=== PATIENT | female | born 1945 | race Caucasian/White ===

== ENCOUNTER 2020-07-31 09:16 | Observation (INO) ==
[2020-07-31] MEDS ORDERED: CeFAZolin Syr 2,000MG/20 ML 2,000 MG/20 ML SYRINGE IVPB ONE (09:28)
[2020-07-31] MEDS ORDERED: Ringers Solution, Lactated 1,000 ML IVC SCH ×2 (09:30→13:13)
[2020-07-31] MEDS ORDERED: Famotidine 20 MG/2 ML VIAL IVP ONE (10:14)
[2020-07-31] MEDS ORDERED: *HR* FentaNYL (PF) 100 MCG/2 ML VIAL IVP PRN (10:33)
[2020-07-31] MEDS ORDERED: flumazeniL 0.5 MG/5 ML VIAL IVP PRN (10:33)
[2020-07-31] MEDS ORDERED: *HR* Metoprolol 5 MG/5 ML VIAL IVP PRN (10:33)
[2020-07-31] MEDS ORDERED: Naloxone 0.4 MG/ML INJ IVP PRN (10:33)
[2020-07-31] MEDS ORDERED: Albuterol 2.5 MG/3 ML NEBULIZER IH PRN (10:33)
[2020-07-31] MEDS ORDERED: Ondansetron 4 MG/2 ML VIAL IVP PRN ×2 (10:33→13:13)
[2020-07-31] MEDS ORDERED: *HR* Propofol 200 MG/20 ML VIAL IVP ONE (10:45)
[2020-07-31] MEDS ORDERED: *HR* FentaNYL (PF) 100 MCG/2 ML VIAL ONE (10:45)
[2020-07-31] MEDS ORDERED: *HR* Rocuronium Bromide 50 MG/5 ML VIAL ONE (10:46)
[2020-07-31] MEDS ORDERED: *HR* Succinylcholine 200 MG/10 ML VIAL IVP ONE (10:46)
[2020-07-31] MEDS ORDERED: Lidocaine HCL 4 ML Topical Solution (Laryng-O-Jet Kit Sterile Pak) TP ONE (10:46)
[2020-07-31] MEDS ORDERED: Lidocaine -MPF 2% 2 ML VIAL ONE ×2 (10:46→11:51)
[2020-07-31] MEDS ORDERED: Ondansetron 4 MG/2 ML VIAL ONE (10:46)
[2020-07-31] MEDS ORDERED: Dexamethasone 4 MG/ML VIAL ONE (10:46)
[2020-07-31] MEDS ORDERED: Isovue-300 50ML VIAL ONE (10:53)
[2020-07-31] MEDS ORDERED: *HR* HYDROMORPHONE 2 MG/ML VIAL ONE (11:49)
[2020-07-31] MEDS ORDERED: clonazePAM 1 MG TABLET PO PRN (13:13)
[2020-07-31] MEDS ORDERED: Ondansetron ODT 4 MG TAB.RAPDIS PO PRN (13:13)
[2020-07-31] MEDS: CeFAZolin 2 GM/120 ML BAG IVPB SCH (16:22)
[2020-07-31] MEDS ORDERED: *HR* LORazepam 2 MG/ML VIAL ONE (20:25)
[2020-07-31] MEDS: *HR* LORazepam 2 MG/ML VIAL IVP PRN (20:36)
[2020-07-31] MEDS ORDERED: NON-FORMULARY MEDICATION 1 EACH EACH (Calcium Carbonate/Vitamin D3 [Oyster Shell 500mg-Vit PO SCH (21:00)
[2020-07-31] MEDS: *HR* OxyCODONE Immed Rel 5 MG TABLET PO PRN (21:45)
[2020-07-31] MEDS: Latanoprost 2.5 ML BOTTLE BOTH EYES SCH (21:59)
[2020-07-31] MEDS: Famotidine 20 MG TABLET PO SCH (21:59)
[2020-08-01 01:04] LABS: BUN/Creatinine Ratio 19 (6-26); Blood Urea Nitrogen 12 mg/dL (8-23); Calcium 9.5 mg/dL (8.6-10.3); Carbon Dioxide 22 mEq/L (23-29); Chloride 103 mEq/L (98-107); Glucose 146 mg/dL (70-105); Osmolality,Calculated 286 (280-300); Potassium 4.5 mEq/L (3.5-5.1); Sodium 137 mEq/L (136-145); eGFR For African Americans > 60 (> 60); eGFR For Non-African Americans > 60 (> 60)
[2020-08-01] MEDS: CeFAZolin 2 GM/120 ML BAG IVPB SCH (01:07)
[2020-08-01] MEDS: *HR* OxyCODONE Immed Rel 5 MG TABLET PO PRN (05:50)
[2020-08-01] MEDS: Loratadine 10 MG TABLET PO SCH (08:15)
[2020-08-01] MEDS: Cholecalciferol (D-3) 1,000 UNIT (25MCG) TABLET PO SCH (08:15)
[2020-08-01] MEDS: Metoprolol XL (24 HR) Succ 50 MG TAB.ER.24H PO SCH (08:16)
[2020-08-01] MEDS: polyethylene glycoL 3350 17 GM POWD.PACK PO SCH (08:16)
[2020-08-01] MEDS: Famotidine 20 MG TABLET PO SCH ×2 (08:16→21:11)
[2020-08-01] MEDS: *HR* Digoxin 0.125 MG TABLET PO SCH (08:16)
[2020-08-01] MEDS: Multivit/Ca/Min/Fe/FA 1 TAB TABLET PO SCH (08:16)
[2020-08-01] MEDS: Furosemide 40 MG TABLET PO SCH (08:16)
[2020-08-01] MEDS: *HR* LORazepam 2 MG/ML VIAL IVP PRN (13:32)
[2020-08-01 14:38] LABS: Basophils % 0.3 %; Eosinophils % 0.3 %; Hematocrit 39.7 % (35.3-44.9); Hemoglobin 13.1 g/dL (11.5-15.4); Immature Granulocytes % 0.5 % (0-4); Lymphocytes # 1.7 K/mcL (0.6-4.6); Lymphocytes % 21.8 %; Mean Corpuscular Hemoglobin 31.6 pg (28.0-33.3); Mean Corpuscular Volume 95.9 fL (83.0-100.0); Mean Platelet Volume 9.1 fL (9.4-12.4); Monocytes # 0.9 K/mcL (0.0-1.3); Monocytes % 11.5 %; Neutrophils # 5.1 K/mcL (1.6-8.9); Platelet Count 183 K/mcL (140-400); Red Blood Count 4.14 M/mcL (3.82-4.97); Red Cell Distribution Width 12.9 % (11.5-14.5); Segmented Neutrophils % 65.6 %; White Blood Count 7.8 K/mcL (4.3-11.1)
[2020-08-01] MEDS ORDERED: Haloperidol Lactate 5 MG/ML VIAL IVP ONE ×3 (14:38→16:00)
[2020-08-01] MEDS ORDERED: *HR* Labetalol 20 MG/4 ML SYRINGE IVP PRN (16:38)
[2020-08-01] MEDS ORDERED: Haloperidol Lactate 5 MG/ML VIAL IVP PRN (17:06)
[2020-08-01 17:53] LABS: Folate > 22.3 ng/mL (3.0-16.0); Vitamin B12 291 pg/mL (250-1100)
[2020-08-01] MEDS ORDERED: QUEtiapine Fumarate 25 MG TABLET PO SCH (21:00)
[2020-08-01] MEDS: QUEtiapine Fumarate 25 MG TABLET PO SCH (21:12)
[2020-08-01] MEDS: Latanoprost 2.5 ML BOTTLE BOTH EYES SCH (23:01)
[2020-08-02] MEDS: Furosemide 40 MG TABLET PO SCH (09:13)
[2020-08-02] MEDS: Cholecalciferol (D-3) 1,000 UNIT (25MCG) TABLET PO SCH (09:13)
[2020-08-02] MEDS: *HR* Digoxin 0.125 MG TABLET PO SCH (09:14)
[2020-08-02] MEDS: Multivit/Ca/Min/Fe/FA 1 TAB TABLET PO SCH (09:14)
[2020-08-02] MEDS: Famotidine 20 MG TABLET PO SCH ×2 (09:14→23:14)
[2020-08-02] MEDS: Loratadine 10 MG TABLET PO SCH (09:14)
[2020-08-02] MEDS: polyethylene glycoL 3350 17 GM POWD.PACK PO SCH (09:14)
[2020-08-02] MEDS: Metoprolol XL (24 HR) Succ 50 MG TAB.ER.24H PO SCH (09:14)
[2020-08-02 19:09] LABS: Bilirubin,Urine Negative (Negative); Blood,Urine Negative (Negative); Clarity,Urine Clear (Clear); Color,Urine Light-Yellow (Yellow); Glucose,Urine (UA) Normal (Normal); Ketones,Urine Negative (Negative); Leukocyte Esterase,Urine Negative (Negative); Nitrite,Urine Negative (Negative); PH,Urine 7.5 pH Units (5.0-8.0); Protein,Urine Negative (Neg-Trace); Urobilinogen,Urine Normal (Normal)
[2020-08-02] MEDS: QUEtiapine Fumarate 25 MG TABLET PO SCH (23:14)
[2020-08-03] MEDS: Latanoprost 2.5 ML BOTTLE BOTH EYES SCH (01:05)
[2020-08-03 02:07] LABS: Basophils % 0.4 %; Eosinophils # 0.1 K/mcL (0.0-0.6); Eosinophils % 1.3 %; Hematocrit 41.2 % (35.3-44.9); Hemoglobin 13.3 g/dL (11.5-15.4); Immature Granulocytes % 0.4 % (0-4); Lymphocytes # 1.8 K/mcL (0.6-4.6); Lymphocytes % 26.6 %; Mean Corpuscular HGB Conc 32.3 g/dL (31.6-35.5); Mean Corpuscular Hemoglobin 30.9 pg (28.0-33.3); Mean Corpuscular Volume 95.6 fL (83.0-100.0); Monocytes # 0.9 K/mcL (0.0-1.3); Monocytes % 12.6 %; Platelet Count 164 K/mcL (140-400); Red Blood Count 4.31 M/mcL (3.82-4.97); Red Cell Distribution Width 12.6 % (11.5-14.5); Segmented Neutrophils % 58.7 %; White Blood Count 6.8 K/mcL (4.3-11.1)
[2020-08-03 02:26] LABS: Alanine Aminotransferase 14 Units/L (7-52); Albumin 3.6 g/dL (3.5-5.7); Albumin/Globulin Ratio 1.2 (1.1-2.2); Alkaline Phosphatase 80 Units/L (34-104); Aspartate Amino Transferase 23 Units/L (13-39); BUN/Creatinine Ratio 27 (6-26); Bilirubin,Total 0.9 mg/dL (0.3-1.0); Blood Urea Nitrogen 14 mg/dL (8-23); Calcium 9.6 mg/dL (8.6-10.3); Carbon Dioxide 27 mEq/L (23-29); Chloride 106 mEq/L (98-107); Globulin 2.9 g/dL (2.4-3.5); Glucose 135 mg/dL (70-105); Osmolality,Calculated 295 (280-300); Phosphorous 3.3 mg/dL (2.7-4.5); Potassium 3.9 mEq/L (3.5-5.1); Sodium 141 mEq/L (136-145); Total Protein 6.5 g/dL (6.4-8.9); eGFR For African Americans > 60 (> 60); eGFR For Non-African Americans > 60 (> 60)
[2020-08-03] MEDS: Cholecalciferol (D-3) 1,000 UNIT (25MCG) TABLET PO SCH (09:19)
[2020-08-03] MEDS: Multivit/Ca/Min/Fe/FA 1 TAB TABLET PO SCH (09:19)
[2020-08-03] MEDS: Metoprolol XL (24 HR) Succ 50 MG TAB.ER.24H PO SCH (09:19)
[2020-08-03] MEDS: Furosemide 40 MG TABLET PO SCH (09:19)
[2020-08-03] MEDS: polyethylene glycoL 3350 17 GM POWD.PACK PO SCH (09:19)
[2020-08-03] MEDS: Famotidine 20 MG TABLET PO SCH (09:19)
[2020-08-03] MEDS: Loratadine 10 MG TABLET PO SCH (09:20)
[2020-08-03] MEDS: *HR* Digoxin 0.125 MG TABLET PO SCH (10:05)
[2020-08-03] MEDS: *HR* OxyCODONE Immed Rel 5 MG TABLET PO PRN (12:31)
[2020-08-03 13:13] VITALS: BP 129/86
== END 2020-08-03 16:54 | disposition home health service (06) ==
LOC: SUATTDRO → SAMDAY 09:16 → 3NENU 09:16
PROVIDERS: ADMIT Internal Medicine; ATTEND Internal Medicine